=== PATIENT | female | born 1950 | race Caucasian/White ===

== ENCOUNTER 2022-10-15 10:35 | Outpatient (CLI) | payer OTHER, MEDICARE | END 2022-10-15 10:36 | disposition home or self-care (01) | LOC: SCSRAD 10:35 | PROVIDERS: ATTEND Family Medicine | DX: M54.50 Low back pain, unspecified (principal); R05.1 Acute cough | CPT/HCPCS: 71046; 72100 ==

== ENCOUNTER 2022-12-12 10:53 | Outpatient (CLI) | payer OTHER, MEDICARE | END 2022-12-12 10:54 | disposition home or self-care (01) | LOC: SCSRAD 10:53 | PROVIDERS: ATTEND Family Medicine | DX: S69.92XA Unspecified injury of left wrist, hand and finger(s), initial encounter (principal); S62.613A Displaced fracture of proximal phalanx of left middle finger, initial encounter for closed fracture ==